=== PATIENT | male | born 1990 ===

== ENCOUNTER 2018-11-22 23:57 | Emergency (ER) | payer SELFPAY ==
[2018-11-23] MEDS ORDERED: Adacel (T-DAP) 0.5 ML SYRINGE ONE (00:56)
[2018-11-23] MEDS ORDERED: Ketorolac Tromethamine 30 MG/ML VIAL ONE (00:56)
--- NOTE | 2018-11-23 08:30 | RAD ---
Exam: Right hand 3 views: HISTORY: Injury secondary to a dogbite. COMPARISON: None FINDINGS: No evidence for foreign body. No evidence for fracture, dislocation, or other significant acute osseous abnormality. IMPRESSION: No significant acute process.
== END 2018-11-23 01:36 | disposition home or self-care (01) ==
LOC: SCSER 23:57
DX: S61.451A Open bite of right hand, initial encounter (principal); S61.031A Puncture wound without foreign body of right thumb without damage to nail, initial encounter; W54.0XXA Bitten by dog, initial encounter
CPT/HCPCS: 90471; 90715; 96372; J1885

== ENCOUNTER 2018-11-25 17:05 | Emergency (ER) | payer SELFPAY | END 2018-11-25 17:23 | disposition home or self-care (01) | LOC: SCSER 17:05 | DX: S61.451A Open bite of right hand, initial encounter (principal); W54.0XXA Bitten by dog, initial encounter | CPT/HCPCS: 99282 ==